=== PATIENT | male | born 1965 | race Two or more races ===

== ENCOUNTER 2019-03-06 10:00 | Outpatient (AMBR) | payer MEDICAID, SELFPAY ==
--- NOTE | 2019-03-03 12:49 | PT.ODAYNRPT ---
PT Outpatient Daily Note Date of Service: March 03, 2019 OP Daily Note Visit Reasons: leg weakness Outpatient Physical Therapy Treatment Date: 03/03/19 Subjective: Pt's legs feels okay but lacking overall endurance Objective: Please see flow chart for list of ther ex performed Assessment: fatigue at the end of PT session Length of Time (minutes) of Treatment: 45 Minutes Office Procedures PT Procedures PT Date of Service: 03/03/19 [facility] Initial 30 minutes: Yes [facility] Additional 15 minutes (Total 45 Minutes): Yes
--- NOTE | 2019-03-06 12:06 | PT.ODAYNRPT ---
PT Outpatient Daily Note Date of Service: March 06, 2019 OP Daily Note Visit Reasons: leg weakness Outpatient Physical Therapy Treatment Date: 03/06/19 Subjective: pt doing ok upon visit but was sore from last visit. Objective: see flow sheet. Assessment: used RTB today with some exercises in he tolerated well but does take rest breaks in between exercises. chair behind him for safety. his 4WW near him. he fatigues with standing ther ex using thera band but refuses to sit and rest in between reps. he is motivated to finish his exercises. pt has his own pace due to fatigue. Plan: continue POC per PT. Length of Time (minutes) of Treatment: 30 Minutes Office Procedures PT Procedures PT Date of Service: 03/03/19 [facility] Initial 30 minutes: Yes [facility] Additional 15 minutes (Total 45 Minutes): Yes PT Procedures PT Date of Service: 03/06/19 [facility] Initial 30 minutes: Yes
== END 2019-03-17 23:59 | disposition home or self-care (01) ==
PROVIDERS: Visit Provider Internal Medicine
DX: R29.898 Other symptoms and signs involving the musculoskeletal system (principal); R53.1 Weakness; R53.83 Other fatigue; R26.2 Difficulty in walking, not elsewhere classified

== ENCOUNTER 2019-04-07 14:00 | Outpatient (AMBR) | payer MEDICAID, SELFPAY ==
--- NOTE | 2019-03-19 14:34 | PT.ODAYNRPT ---
PT Outpatient Daily Note Date of Service: March 19, 2019 OP Daily Note Visit Reasons: leg weakness Outpatient Physical Therapy Treatment Date: 03/19/19 Subjective: Pt's legs are weak and sore today. Pt has been doing a lot. Pt is suppose to start cardiac therapy soon due to having heart failure Objective: Please see flow chart for list of ther ex performed Assessment: tolerate exercises; cues to pace and rest with each exercise due to noticing SOB with exertion Plan: Continue with PT Length of Time (minutes) of Treatment: 30 Minutes Office Procedures PT Procedures PT Date of Service: 03/19/19 [facility] Initial 30 minutes: Yes
--- NOTE | 2019-03-23 15:17 | PT.ODAYNRPT ---
PT Outpatient Daily Note Date of Service: March 23, 2019 OP Daily Note Visit Reasons: leg weakness Outpatient Physical Therapy Treatment Date: 03/23/19 Subjective: Pt is having a better day. According to Pt's he fell on saturday due to losing his balance. Pt has been dropping things due to weakness and fatigue in the hands. Objective: Please see flow chart for list of ther ex Assessment: pace pt due to easily fatigue; Pt stiill exhibit SOB with exertion and advised to rest as needed. Pt will take break after each exercise. Cues to correct SLS exercise to not lean against the PB Plan: Continue with PT Length of Time (minutes) of Treatment: 45 Minutes Office Procedures PT Procedures PT Date of Service: 03/23/19 [facility] Initial 30 minutes: Yes MCL Additional 15 minutes (Total 45 Minutes): Yes PT Procedures PT Date of Service: 03/19/19 [facility] Initial 30 minutes: Yes
--- NOTE | 2019-03-26 15:22 | PT.ODAYNRPT ---
PT Outpatient Daily Note Date of Service: March 26, 2019 OP Daily Note Visit Reasons: leg weakness Outpatient Physical Therapy Treatment Date: 03/26/19 Subjective: pt doing well today with no complaints upon visit. Objective: see flow sheet. Assessment: pt leaves his walker to the side while he walks short distances. he is able to get up from sci fit with no fatigue. noted fair ROM of the knee flexion during lunges although he does lean a little too forward. good calf muscle activation with good posture. fair SLS balance exercise in front of rail for safety. pt had no c/o pain during and after treatment. Plan: continue POC per PT. Length of Time (minutes) of Treatment: 30 Minutes Office Procedures PT Procedures PT Date of Service: 03/23/19 [facility] Initial 30 minutes: Yes [facility] Additional 15 minutes (Total 45 Minutes): Yes PT Procedures PT Date of Service: 03/19/19 [facility] Initial 30 minutes: Yes PT Procedures PT Date of Service: 03/26/19 Therapeutic Exercise 30 minutes: Yes
--- NOTE | 2019-03-30 15:15 | PT.ODAYNRPT ---
PT Outpatient Daily Note Date of Service: March 30, 2019 OP Daily Note Visit Reasons: leg weakness Outpatient Physical Therapy Treatment Date: 03/30/19 Subjective: Pt's legs are good and feels good. Objective: Please see flow chart for list of ther ex performed Assessment: performed exercises with less break today. Pt seems to have more endurance today and c/o less fatigue Plan: Continue with PT Length of Time (minutes) of Treatment: 45 Minutes Office Procedures PT Procedures PT Date of Service: 03/23/19 [facility] Initial 30 minutes: Yes [facility] Additional 15 minutes (Total 45 Minutes): Yes PT Procedures PT Date of Service: 03/19/19 [facility] Initial 30 minutes: Yes PT Procedures PT Date of Service: 03/26/19 [facility] Initial 30 minutes: Yes PT Procedures PT Date of Service: 03/30/19 [facility] Initial 30 minutes: Yes [facility] Additional 15 minutes (Total 45 Minutes): Yes
--- NOTE | 2019-04-02 16:08 | PT.ODAYNRPT ---
PT Outpatient Daily Note Date of Service: April 02, 2019 OP Daily Note Visit Reasons: leg weakness Outpatient Physical Therapy Treatment Date: 04/02/19 Subjective: pt states he is feeling ok today as he has better days. Objective: see flow sheet. Assessment: pt ambulated with 4WW today. he tolerates the standing ther ex while using thera band with no difficulty besides fatigue and needs rest breaks. the thera band did not seem to cause LOB. good knee flexion ROM and posture during lunges. he is able to lift both heels equally. Plan: continue POC per PT. Length of Time (minutes) of Treatment: 30 Minutes Office Procedures PT Procedures PT Date of Service: 03/23/19 [facility] Initial 30 minutes: Yes [facility] Additional 15 minutes (Total 45 Minutes): Yes PT Procedures PT Date of Service: 03/19/19 [facility] Initial 30 minutes: Yes PT Procedures PT Date of Service: 03/26/19 [facility] Initial 30 minutes: Yes PT Procedures PT Date of Service: 03/30/19 [facility] Initial 30 minutes: Yes [facility] Additional 15 minutes (Total 45 Minutes): Yes PT Procedures PT Date of Service: 04/02/19 [facility] Initial 30 minutes: Yes
--- NOTE | 2019-04-07 14:56 | PT.ODAYNRPT ---
PT Outpatient Daily Note Date of Service: April 07, 2019 OP Daily Note Visit Reasons: leg weakness Outpatient Physical Therapy Treatment Date: 04/07/19 Subjective: Pt mention that his knee and hip feels good today. Pt is having a good day so far Objective: Please see flow chart for list of ther ex performed Assessment: difficulty with tick tock + airex foam exercise. Added higher resistance today with all hip exercises. Plan: Continue with PT Length of Time (minutes) of Treatment: 45 Minutes Office Procedures PT Procedures PT Date of Service: 03/23/19 [facility] Initial 30 minutes: Yes [facility] Additional 15 minutes (Total 45 Minutes): Yes PT Procedures PT Date of Service: 04/07/19 [facility] Initial 30 minutes: Yes [facility] Additional 15 minutes (Total 45 Minutes): Yes PT Procedures PT Date of Service: 03/19/19 [facility] Initial 30 minutes: Yes PT Procedures PT Date of Service: 03/26/19 [facility] Initial 30 minutes: Yes PT Procedures PT Date of Service: 03/30/19 [facility] Initial 30 minutes: Yes [facility] Additional 15 minutes (Total 45 Minutes): Yes PT Procedures PT Date of Service: 04/02/19 [facility] Initial 30 minutes: Yes
== END 2019-04-17 23:59 | disposition home or self-care (01) ==
PROVIDERS: Visit Provider Internal Medicine
DX: R29.898 Other symptoms and signs involving the musculoskeletal system (principal); R53.83 Other fatigue; R26.2 Difficulty in walking, not elsewhere classified; G71.00 Muscular dystrophy, unspecified

== ENCOUNTER → 2024-03-24 | Outpatient (CLI) | payer MEDICARE, SELFPAY ==
[2024-03-24 12:58] LABS: Collection Type, Urine Clean Catch
[2024-03-24 13:54] LABS: Bilirubin,Urine Negative (Negative); Blood,Urine Negative (Negative); Clarity,Urine Clear (Clear/Hazy); Color,Urine Yellow (Lt Yel-Yel); Glucose, Urine Negative (Negative); Hyaline Casts,Urine < 1 /hpf (0-1); Ketones,Urine Negative (Negative); Leukocyte Esterase,Urine Positive (Negative); Nitrite,Urine Negative (Negative); PH,Urine 5.5 (5.0-7.0); Protein,Urine 1+ (Neg - Trace); RBC,Urine 1 /hpf (0-3); Specific Gravity,Urine 1.033 (1.001-1.035); Squamous Epithelial Cell,Urine < 1 /hpf (0-5); WBC,Urine 5 /hpf (0-5)
== END | disposition home or self-care (01) ==
LOC: SLDO 12:08
PROVIDERS: PCP Family Medicine; Referring Provider Family Medicine; Visit Provider Family Medicine
DX: N39.0 Urinary tract infection, site not specified (principal)
CPT/HCPCS: 81001; 87086

== ENCOUNTER → 2024-03-30 | Outpatient (CLI) | payer MEDICARE, SELFPAY ==
[2024-03-30 16:25] LABS: Basophils # (Auto) 0.1 Thou/mm3 (0.0-0.2); Basophils % (Auto) 1 % (0-2.5); Eosinophils # (Auto) 0.1 Thou/mm3 (0.0-0.5); Eosinophils % (Auto) 1 % (0-10); Hematocrit 38.9 % (41.0-53.0); Hemoglobin 13.3 g/dL (13.5-16.0); Immature Granulocytes % (Auto) 1 % (0-0); Immature Granulocytes Auto 0.08 Thou/mm3 (0.00-0.00); Lymphocytes # (Auto) 1.5 Thou/mm3 (1.0-4.8); Lymphocytes % (Auto) 21 % (10-50); Mean Corpuscular HGB Conc 34.2 g/dl (31.0-37.0); Mean Corpuscular Volume 82 fL (80-100); Monocytes # (Auto) 0.5 Thou/mm3 (0.0-0.8); Monocytes % (Auto) 7 % (0-12); Neutrophils # (Auto) 5.2 Thou/mm3 (1.8-7.7); Neutrophils % (Auto) 69 % (37-80); Nucleated Red Blood Cell % 0 /100 WBC (0); Platelet Count 280 Thou/mm3 (140-440); RDW Standard Deviation 44.7 fL (35.1-43.9); Red Blood Count 4.75 Miln/mm3 (4.50-5.90); White Blood Count 7.4 Thou/mm3 (3.8-10.6)
[2024-03-30 16:43] LABS: Alanine Aminotransferase 33 U/L (10-49); Albumin, Serum 4.5 gm/dL (3.5-5.0); Albumin/Globulin Ratio 1.4 (1.2-2.2); Alkaline Phosphatase 98 U/L (46-116); Anion Gap 11 (7-16); Aspartate Amino Transferase 33 U/L (0-34); BUN/Creatinine Ratio 18 Ratio (12-20); Bilirubin,Total 0.6 mg/dL (0.3-1.2); Blood Urea Nitrogen 30 mg/dL (9-23); Calcium 9.3 mg/dL (8.3-10.6); Calcium (Corrected) 9.3 mg/dL (8.5-10.1); Carbon Dioxide 27.5 mMol/L (20.0-31.0); Chloride 102 mMol/L (98-107); Creatinine (Component) 1.7 mg/dL (0.6-1.3); Globulin 3.2 gm/dL (2.3-3.5); Glucose 95 mg/dL (74-106); Osmolality,Calculated 285 (275-295); Potassium 4.3 mMol/L (3.4-5.1); Sodium 140 mMol/L (136-145); Total Protein 7.7 gm/dL (5.7-8.2); eGFR 46 See Note
== END | disposition home or self-care (01) ==
LOC: COPL 15:42
PROVIDERS: PCP Family Medicine; Referring Provider Family Medicine; Visit Provider Family Medicine
DX: K57.32 Diverticulitis of large intestine without perforation or abscess without bleeding (principal); N18.32 Chronic kidney disease, stage 3b; N30.00 Acute cystitis without hematuria
CPT/HCPCS: 36415; 80053; 85025; 87086

== ENCOUNTER → 2024-06-25 | Outpatient (BNVA) | payer MEDICARE, SELFPAY | END | disposition home or self-care (01) | PROVIDERS: PCP Family Medicine; Referring Provider Family Medicine; Visit Provider Urology | DX: N40.1 Benign prostatic hyperplasia with lower urinary tract symptoms (principal); N13.8 Other obstructive and reflux uropathy; R97.20 Elevated prostate specific antigen [PSA]; N18.30 Chronic kidney disease, stage 3 unspecified; E66.9 Obesity, unspecified; Z68.31 Body mass index [BMI] 31.0-31.9, adult; G71.00 Muscular dystrophy, unspecified; C90.00 Multiple myeloma not having achieved remission; Z94.1 Heart transplant status; Z87.442 Personal history of urinary calculi; Z86.73 Personal history of transient ischemic attack (TIA), and cerebral infarction without residual deficits; J44.9 Chronic obstructive pulmonary disease, unspecified | CPT/HCPCS: 81003; 99203; G0463 ==

== ENCOUNTER → 2024-06-25 | Outpatient (CLI) | payer MEDICARE, SELFPAY ==
[2024-06-25 11:10] LABS: PSA Medicare Annual Scrn 0.93 ng/mL (0-4.00)
== END | disposition home or self-care (01) ==
PROVIDERS: PCP Family Medicine; Referring Provider Urology; Visit Provider Urology
DX: R97.20 Elevated prostate specific antigen [PSA] (principal)
CPT/HCPCS: 36415; 84153; G0103

== ENCOUNTER → 2024-08-13 | Outpatient (BNVA) | payer MEDICARE, SELFPAY | END | disposition home or self-care (01) | PROVIDERS: PCP Family Medicine; Referring Provider Family Medicine; Visit Provider Urology | DX: Z53.8 Procedure and treatment not carried out for other reasons (principal) | CPT/HCPCS: 99212; G0463 ==

== ENCOUNTER → 2024-09-03 | Outpatient (BNVA) | payer MEDICARE, SELFPAY | END | disposition home or self-care (01) | PROVIDERS: PCP Family Medicine; Referring Provider Family Medicine; Visit Provider Urology | DX: N40.1 Benign prostatic hyperplasia with lower urinary tract symptoms (principal); R39.12 Poor urinary stream; I48.91 Unspecified atrial fibrillation; I50.9 Heart failure, unspecified; J44.9 Chronic obstructive pulmonary disease, unspecified | CPT/HCPCS: 51741; 51798 ==

== ENCOUNTER → 2024-10-23 | Outpatient (BNVA) | payer MEDICARE, SELFPAY | END | disposition home or self-care (01) | PROVIDERS: PCP Family Medicine; Referring Provider Family Medicine; Visit Provider Urology | DX: N40.1 Benign prostatic hyperplasia with lower urinary tract symptoms (principal); N13.8 Other obstructive and reflux uropathy; E66.9 Obesity, unspecified; Z68.31 Body mass index [BMI] 31.0-31.9, adult; N18.30 Chronic kidney disease, stage 3 unspecified; G71.00 Muscular dystrophy, unspecified; C90.00 Multiple myeloma not having achieved remission; Z94.1 Heart transplant status; N52.9 Male erectile dysfunction, unspecified; N45.1 Epididymitis; I48.91 Unspecified atrial fibrillation; J44.9 Chronic obstructive pulmonary disease, unspecified | CPT/HCPCS: 81003; 99212; G0463 ==